=== PATIENT | female | born 1980 | race Caucasian/White ===

== ENCOUNTER 2022-04-10 22:17 | Observation (INO) | payer OTHER ==
[2022-04-10] MEDS ORDERED: Ondansetron ODT 4 MG TAB PO PRN (23:35)
[2022-04-10] MEDS ORDERED: Acetaminophen 650 MG Suppository PR PRN (23:35)
[2022-04-10] MEDS ORDERED: Acetaminophen 325 MG TAB PO PRN (23:35)
[2022-04-10] MEDS ORDERED: Ondansetron PF 4 MG/2 ML Vial IVP PRN (23:35)
[2022-04-11 00:19] VITALS: BMI 19.4
[2022-04-11 00:26] LABS: Anion Gap 15 mmol/L (10-20); BUN (Urea Nitrogen) 8 mg/dL (7.0-18.7); Calc. Creatinine Clearance 62 mL/min (70-130); Calcium 7.8 mg/dL (7.8-10.44); Carbon Dioxide 13 mmol/L (22-29); Chloride 111 mmol/L (98-107); Estimated GFR 75; Glucose 132 mg/dL (70-105); Sodium 134 mmol/L (136-145)
[2022-04-11] MEDS: Sodium Chloride 0.9% 1,000 ML IV SCH ×2 (00:42→09:46)
[2022-04-11] MEDS ORDERED: Pantoprazole 40 MG VIAL IVP SCH ×2 (00:45→09:00)
[2022-04-11 06:57] LABS: Anion Gap 13 mmol/L (10-20); BUN (Urea Nitrogen) 8 mg/dL (7.0-18.7); Calc. Creatinine Clearance 77 mL/min (70-130); Calcium 7.9 mg/dL (7.8-10.44); Carbon Dioxide 14 mmol/L (22-29); Chloride 112 mmol/L (98-107); Estimated GFR 97; Potassium 4.2 mmol/L (3.5-5.1); Sodium 135 mmol/L (136-145)
[2022-04-11 07:02] LABS: #Lymphocytes 1.1 thou/uL (1.20-3.40); #Monocytes 0.7 thou/uL (0.11-0.59); #Neutrophils 6.5 thou/uL (1.40-6.50); %Basophils 0.4 % (0.0-1.0); %Eosinophils 0.1 % (0.0-10.0); %Lymphocytes 13.4 % (21.0-51.0); %Monocytes 8.2 % (0.0-10.0); %Neutrophils 77.9 % (42.0-75.0); Hemoglobin 11.5 g/dL (12.0-16.0); MDiff Complete? YES; Macrocytosis MODERATE=16-30 cells (100X) (0-5/hpf); Mean Corpuscular HGB CONC 32.7 g/dL (32.0-36.0); Mean Platelet Volume 6.4 fL (7.4-10.4); Platelet Count 153 10x3/uL (130-400); RBC Distribution Width 15.5 % (11.5-14.5); Red Blood Cell (RBC) Count 2.95 mill/uL (4.20-5.40); White Blood Cell (WBC) Count 8.3 10x3/uL (4.8-10.8)
[2022-04-11 07:03] LABS: Glucose 55 mg/dL (70-105)
[2022-04-11] MEDS ORDERED: FLU VACC QS2022-23(6MOS UP)/PF 60 MCG/0.5 ML SYRINGE IM ONE (09:00)
[2022-04-11 09:05] VITALS: BP 124/84; TEMP 98.6
== END 2022-04-11 15:24 | disposition home or self-care (01) ==
LOC: T4-B 22:17
PROVIDERS: ADMIT Internal Medicine; ATTEND Internal Medicine
DX: E87.20 Acidosis, unspecified (principal); R11.2 Nausea with vomiting, unspecified; R10.13 Epigastric pain; E87.5 Hyperkalemia; Z88.8 Allergy status to other drugs, medicaments and biological substances
CPT/HCPCS: 36415; 36416; 80048; 85025; 96374; 96376; C9113; G0378; J7050

== ENCOUNTER 2023-01-15 15:25 | Outpatient (CLI) | payer OTHER | END 2023-01-15 15:26 | disposition home or self-care (01) | LOC: BICMAMMO 15:25 | PROVIDERS: ATTEND Family Medicine | DX: Z12.31 Encounter for screening mammogram for malignant neoplasm of breast (principal); Z80.3 Family history of malignant neoplasm of breast | CPT/HCPCS: 77063; 77067 ==